=== PATIENT | female | born 1950 | race Caucasian/White ===

== ENCOUNTER 2016-07-18 11:12 | Emergency (ER) | payer MEDICARE ==
[~2016-07-18] VITALS: Ht 147.3 cm; Wt 50.0 kg
[~2016-07-18 11:12] MED LIST: CALC500T42 PO; CYCL5TAB PO; DRIS8000 PO; FISH1200; IBUP-232 PO; IBUP600T26 PO; LIPI10TA PO; MULT-65 PO; ROBA750T3 PO
[2016-07-18 11:14] VITALS: BP 165/77; PULSE 77; RESP 24; TEMP 97.4; O2SAT 99
[2016-07-18 11:26] VITALS: BP 170/81; PULSE 68; RESP 18; O2SAT 100
[2016-07-18 12:15] VITALS: BP_SYST 128; BP_SYST 141; BP_DIAS 58; BP_DIAS 65; PULSE 64; PULSE 66; RESP 16; O2SAT 98
[2016-07-18] MEDS ORDERED: SODIUM CHLORIDE 0.9% FLUSH 10 ML FLUSH IVF PRN (12:15)
[2016-07-18 12:31] LABS: AUTOMATED NEUTROPHIL # 4.1 TH/MM3 (1.8-7.7); BASOPHIL # 0.1 TH/MM3 (0-0.2); EOSINOPHIL # 0.1 TH/MM3 (0-0.4); EOSINOPHIL % 0.9 % (0.0-4.0); HEMATOCRIT 42.7 % (35.0-46.0); HEMO FLAGS DIFF FINAL; LYMPH % 25.5 % (9.0-44.0); LYMPHOCYTE # 1.6 TH/MM3 (1.0-4.8); MEAN CELL VOLUME 93.8 FL (80.0-100.0); MEAN CORPUSCULAR HEMOGLOBIN 31.7 PG (27.0-34.0); MEAN CORPUSCULAR HGB CONC 33.7 % (32.0-36.0); MONO % 7.6 % (0.0-8.0); PLATELET COUNT 302 TH/MM3 (150-450); RED BLOOD COUNT 4.55 MIL/MM3 (4.00-5.30); RED CELL DISTRIBUTION WIDTH 13.5 % (11.6-17.2); WHITE BLOOD COUNT 6.3 TH/MM3 (4.0-11.0)
--- NOTE | 2016-07-18 12:33 | RADRPT ---
EXAM DATE/TIME: 07/18/2016 12:03 [place] COMPARISON: No previous studies available for comparison. INDICATIONS : Shortness of breath. MEDICAL HISTORY : None. SURGICAL HISTORY : None. ENCOUNTER: Initial ACUITY: 1 day PAIN SCORE: 0/10 LOCATION: Bilateral chest FINDINGS: A single view of the chest demonstrates the lungs to be symmetrically aerated without evidence of mas s, infiltrate or effusion. The cardiomediastinal contours are unremarkable. Osseous structures are intact. CONCLUSION: 1. No acute cardiopulmonary findings. Keegan Murray MD on July 18, 2016 at 12:30 Board Certified Radiologist. This report was verified electronically.
--- NOTE | 2016-07-18 12:42 | PD ---
HPI Chief Complaint: Respiratory Distress Time Seen by Provider: 11:50 Travel History International Travel<30 days: No Contact w/Intl Traveler<30days: No Traveled to known affect area: No History of Present Illness HPI This is a 66-year-old female who presents to the emergency department with multiple complaints. She says 4 days ago she developed a bump on her left mid arm which she can feel and felt a little bit like a blood clot. It went away the next day. Then she started to have some discomfort in her right neck. Then 3 days ago she developed some discomfort in her upper abdomen, mild, constant. Today she felt very weak and short of breath and felt like she couldn 't exert herself without getting lightheaded. She felt like she is going to pass out when she stepped on an exercise machine this morning. She told her friend who brought her to the emergency department. She denies any associated fevers, chills, cough or leg swelling. She's not traveled anywhere recently. She is otherwise healthy. She does take medication for hyperlipidemia and her father had a heart attack in his 50s. She's never had a stress test. PFSH Past Medical History High Cholesterol: Yes Diminished Hearing: No Immunizations Current: Yes Tetanus Vaccination: Unknown Influenza Vaccination: Yes Menopausal: Yes : 1 Para: 1 Past Surgical History Surgical History: No Previous Surgery Social History Alcohol Use: Yes (occu) Tobacco Use: No Substance Use: No Allergies-Medications (Allergen,Severity, Reaction): Coded Allergies: Penicillin (Verified Allergy, Intermediate, Lumps, 07/18/16) Reported Meds & Prescriptions Reported Meds & Active Scripts Active Flexeril (Cyclobenzaprine HCl) 5 Mg Tab 5 Mg PO TID PRN Ibuprofen 600 Mg Tab 600 Mg PO Q8HR PRN Ibuprofen 600 Mg Tab 600 Mg PO Q8HR PRN Robaxin-750 (Methocarbamol) 750 Mg Tab 750 Mg PO TID PRN FOR PAIN Lipitor 10 Mg Tab (Atorvastatin Calcium) 10 Mg Tab 1 Tab PO DAILY Reported Fish Oil ([place]-3 Fatty Acids) 1,200 Mg Cap Calcium Unknown Strength Tab Unknown Dose PO DAILY Vitamin D8000 Mg/Ml Unknown Strength Berna Unknown Dose PO Multi-Vitamin Daily (Multivitamins) Daily Tab 1 Tab PO DAILY Review of Systems Except as stated in HPI: all other systems reviewed are Neg Physical Exam Narrative GENERAL:Well appearing, no acute distress SKIN: Focused skin assessment warm and dry. HEAD: Atraumatic. Normocephalic. EYES: Pupils equal and round. No injection or drainage. ENT: Moist mucous membranes NECK: Trachea midline. CARDIOVASCULAR: Regular rate and rhythm. No murmur appreciated. RESPIRATORY: Clear to auscultation. Breath sounds equal bilaterally. GASTROINTESTINAL: Abdomen soft, non-tender, nondistended. MUSCULOSKELETAL: No obvious deformities. NEUROLOGICAL: Awake and alert. No obvious cranial nerve deficits. Moving all extremities. PSYCHIATRIC: Appropriate mood and affect; insight and judgment normal. Data Data Last Documented VS Vital Signs Date Time Temp Pulse Resp B/P Pulse Ox O2 Delivery O2 Flow Rate FiO2 07/18/16 12:15 66 128/58 07/18/16 12:15 16 98 Room Air 07/18/16 11:26 1 07/18/16 11:14 97.4 Orders Electrocardiogram (07/18/16 12:01) Complete Blood Count With Diff (07/18/16 12:01) Comprehensive Metabolic Panel (07/18/16 12:01) D-Dimer (07/18/16 12:01) Troponin I (07/18/16 12:01) Chest, Single Ap (07/18/16 12:01) Ecg Monitoring (07/18/16 12:01) Bilateral Bp Monitoring (07/18/16 12:01) Iv Access Insert/Monitor (07/18/16 12:01) Oximetry (07/18/16 12:01) Oxygen Administration (07/18/16 12:01) Sodium Chloride 0.9% Flush (Ns Flush) (07/18/16 12:15) Labs Laboratory Tests Test 07/18/16 07/18/16 12:00 12:40 White Blood Count 6.3 TH/MM3 Red Blood Count 4.55 MIL/MM3 Hemoglobin 14.4 GM/DL Hematocrit 42.7 % Mean Corpuscular Volume 93.8 FL Mean Corpuscular Hemoglobin 31.7 PG Mean Corpuscular Hemoglobin 33.7 % Concent Red Cell Distribution Width 13.5 % Platelet Count 302 TH/MM3 Mean Platelet Volume 8.6 FL Neutrophils (%) (Auto) 65.0 % Lymphocytes (%) (Auto) 25.5 % Monocytes (%) (Auto) 7.6 % Eosinophils (%) (Auto) 0.9 % Basophils (%) (Auto) 1.0 % Neutrophils # (Auto) 4.1 TH/MM3 Lymphocytes # (Auto) 1.6 TH/MM3 Monocytes # (Auto) 0.5 TH/MM3 Eosinophils # (Auto) 0.1 TH/MM3 Basophils # (Auto) 0.1 TH/MM3 CBC Comment DIFF FINAL Differential Comment D-Dimer Quantitative (PE/DVT) 0.31 MG/L FEU Sodium Level 141 MEQ/L Potassium Level 4.3 MEQ/L Chloride Level 107 MEQ/L Carbon Dioxide Level 25.4 MEQ/L Anion Gap 9 MEQ/L Blood Urea Nitrogen 15 MG/DL Creatinine 0.91 MG/DL Estimat Glomerular Filtration 62 ML/MIN Rate Random Glucose 84 MG/DL Calcium Level 8.5 MG/DL Total Bilirubin 0.6 MG/DL Aspartate Amino Transf 23 U/L (AST/SGOT) Alanine Aminotransferase 35 U/L (ALT/SGPT) Alkaline Phosphatase 56 U/L Troponin I LESS THAN 0.02 NG/ML Total Protein 6.8 GM/DL Albumin 3.7 GM/DL MDM Medical Decision Making Medical Screen Exam Complete: Yes Emergency Medical Condition: Yes Interpretation(s) EKG: Normal sinus rhythm with no ST changes No leukocytosis Electrolytes are reassuring Troponin is normal D-dimer is negative Last 24 hours Impressions Chest X-Ray 07/18/16 1201 Signed Impressions: Service Date/Time: , July 18, 2016 12:03 - CONCLUSION: 1. No acute cardiopulmonary findings. Keegan Murray MD Differential Diagnosis Acute coronary syndrome, anxiety, pulmonary embolism, electrolyte abnormality Narrative Course This is a 66-year-old female who presents to the emergency department with multiple nonspecific symptoms including a lump in her forearm, some neck discomfort, epigastric discomfort and shortness of breath. All of her symptoms have been constant for 3 days. She has a benign exam and normal vital signs. EKG is nonischemic. She is placed on a monitor and an IV was established. Labs are obtained which were reassuring including a normal troponin. Her symptoms and discomfort in her chest has been going on for 3 days, so I would expect if this were acs her troponin would be abnormal at this point. I can't identify an obvious etiology for her symptoms. I have a suspicion this may reflect anxiety, but certainly that is a diagnosis of exculsion. I discussed with the patient inpatient versus outpatient management. She doesn't want to stay in the hospital, and I did tell her that in my heart of hearts don't think that this is cardiac. She does have appointment with a primary care physician tomorrow. I think that this is perfect follow-up for her and I asked her to request that they order an outpatient stress test. Diagnosis Primary Impression: Lightheadedness Patient Instructions: General Instructions Additional Instructions: If you develop severe chest pain, shortness of breath, sweating, lightheadedness , dizziness or difficulty breathing return to the emergency department immediately. Follow up with your primary care physician tomorrow, and request that they order a stress test to further evaluate your heart. Med/Other Pt SpecificInfo: No Change to Meds Disposition: 01 DISCHARGE HOME Condition: Stable Nery Garza MD Jul 18, 2016 12:42
[2016-07-18 13:31] LABS: ANION GAP 9 MEQ/L (5-15); AST (GOT) 23 U/L (15-37); BICARBONATE 25.4 MEQ/L (21.0-32.0); BLOOD UREA NITROGEN 15 MG/DL (7-18); CHLORIDE 107 MEQ/L (98-107); GLOMERULAR FILTRATION RATE 62 ML/MIN (>89); POTASSIUM 4.3 MEQ/L (3.5-5.1); SODIUM (NA) 141 MEQ/L (136-145)
[2016-07-18 13:36] LABS: ALKALINE PHOSPHATASE 56 U/L (45-117); ALT (GPT) 35 U/L (10-53); TOTAL BILIRUBIN ADULT 0.6 MG/DL (0.2-1.0)
[2016-07-18 14:19] VITALS: BP 142/66
--- NOTE | 2016-07-19 17:58 | EKG ---
Date Performed: 07/18/2016 Time Performed: 11:36:58 PTAGE: 66 years EKG: Sinus rhythm NORMAL ECG NO PREVIOUS TRACING DOCTOR: Christina Pickard Interpretating Date/Time 07/19/2016 17:57:28
== END 2016-07-18 14:21 | disposition home or self-care (01) ==
LOC: NEPD 11:12
DX: R42 Dizziness and giddiness (principal); R06.02 Shortness of breath
CPT/HCPCS: 71010; 80053; 84484; 85025; 85379; 93005; 99285